=== PATIENT | male | born 1990 | race African-American/Black ===

== ENCOUNTER 2022-07-22 01:19 | Emergency (ER) | payer SELFPAY ==
[2022-07-22] MEDS ORDERED: Lidocaine 1% MPF 2 ML VIAL ONE (02:10)
[2022-07-22] MEDS ORDERED: cefTRIAXone\\ROCEPHIN 500 MG VIAL ONE (02:10)
[2022-07-22 02:28] LABS: Bilirubin Neg (Negative); Blood, Urine 25 (Negative); Clarity Slightly Cloudy (Clear); Glucose, Urine (Dipstick) Normal (Negative); Ketone, Urine 5 mg/dL (Negative); Leukocyte 500 (Negative); Nitrite Negative (Negative); Protein, Urine (Dipstick) 30 mg/dl (Neg-Trace)
[2022-07-22 02:35] LABS: Bacteria/HPF Rare-Few HPF (None Seen); Squamous Epithelial 0-3 HPF (0-3); WBC/HPF 21-50 HPF (0-3)
[2022-07-22 16:22] LABS: Chlam.trachomatis by PCR,Urine Not Detected (NotDetected); GC N.gonorrhoeae PCR,UrineVOID DETECTED (NotDetected)
== END 2022-07-22 02:35 | disposition home or self-care (01) ==
LOC: CSHERS 01:19
DX: N34.2 Other urethritis (principal)
CPT/HCPCS: 81003; 81015; 87086; 87491; 87591; 96372; 99283; J0696

== ENCOUNTER 2022-11-10 22:55 | Emergency (ER) | payer SELFPAY ==
[2022-11-10] MEDS ORDERED: Ibuprofen 200 MG TAB ONE (23:30)
[2022-11-10] MEDS ORDERED: Acetaminophen 500 MG TAB ONE (23:30)
== END 2022-11-10 23:46 | disposition home or self-care (01) ==
LOC: CSHERS 22:55
DX: S20.212A Contusion of left front wall of thorax, initial encounter (principal); Y04.8XXA Assault by other bodily force, initial encounter
CPT/HCPCS: 71045